=== PATIENT | male | born 1990 | race Caucasian/White ===

== ENCOUNTER 2017-10-21 01:23 | Emergency (ER) | payer OTHER ==
[2017-10-21] MEDS ORDERED: HYDROcodone/Acetaminophen 5/325 mg Tablet ONE (01:50)
[2017-10-21] MEDS ORDERED: Adacel (T-DAP) 0.5 ML VIAL ONE (01:50)
[2017-10-21] MEDS ORDERED: Bacitracin Zinc 1 Packet ONE ×2 (01:52→02:43)
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
== END 2017-10-21 03:00 | disposition home or self-care (01) ==
LOC: ERS 01:23
DX: S51.032A Puncture wound without foreign body of left elbow, initial encounter (principal); S20.212A Contusion of left front wall of thorax, initial encounter; S80.212A Abrasion, left knee, initial encounter; S80.211A Abrasion, right knee, initial encounter; S70.312A Abrasion, left thigh, initial encounter; S70.212A Abrasion, left hip, initial encounter; J45.909 Unspecified asthma, uncomplicated; Z23 Encounter for immunization; V29.9XXA Motorcycle rider (driver) (passenger) injured in unspecified traffic accident, initial encounter
CPT/HCPCS: 71045; 90471; 90715; G0390